=== PATIENT | male | born 1965 | race Caucasian/White ===

== ENCOUNTER 2018-01-21 16:37 | Emergency (ER) | payer OTHER ==
[~2018-01-21] VITALS: Ht 185.4 cm; Wt 98.9 kg
[2018-01-21 16:38] VITALS: BP 120/82
[2018-01-21 17:52] VITALS: BP 121/81
== END 2018-01-21 17:52 | disposition home or self-care (01) ==
LOC: MED 16:37
DX: K52.9 Noninfective gastroenteritis and colitis, unspecified (principal)
CPT/HCPCS: 99283

== ENCOUNTER 2018-02-08 23:23 | Inpatient (IN) | payer OTHER ==
[~2018-02-08] VITALS: Ht 185.4 cm; Wt 97.5 kg
[2018-02-08 23:30] VITALS: BP 157/100
--- NOTE | 2018-02-08 23:45 | NUR ---
PT TO ER BED 6
--- NOTE | 2018-02-08 23:48 | NUR ---
52/M CAME IN RT SIDED CHEST PAIN RADIATING TO NECK, NONPROVOKED, X 1300 TODAY. HEART SOUNDS NORMAL, SINUS TACH ON MONITOR. PT NONDIAPHORETIC, SKIN IS WARM AND DRY. DENIES N/V, SOB. REPORTS COUGH X 2 DAYS. DENIES OTHER PMH/RX/OTC
[2018-02-09 00:04] LABS: BASOPHILS % (AUTO) 0.3 % (0.0-2.0); EOSINOPHILS # (AUTO) 0.2 K/uL (0-0.4); EOSINOPHILS % (AUTO) 1.8 % (0.0-4.0); HEMATOCRIT 47.9 % (36-52); HEMOGLOBIN 15.8 g/dL (12.0-18.0); LYMPHOCYTES % (AUTO) 16.6 % (20.5-51.1); MEAN CORPUSCULAR HEMOGLOBIN 29 pg (27-31); MEAN CORPUSCULAR HGB CONC 33 g/dL (33-37); MEAN CORPUSCULAR VOLUME 88.6 fL (80-94); MONOCYTES % (AUTO) 8.1 % (1.7-9.3); NEUTROPHILS # (AUTO) 8.9 K/uL (1.8-7.7); NEUTROPHILS % (AUTO) 73.2 % (42.2-75.2); PLATELET COUNT (AUTO) 347 K/uL (140-450); RED BLOOD CELL COUNT(AUTO) 5.41 MIL/uL (4.20-6.10); RED CELL DISTRIBUTION WIDTH 13.5 % (11.6-13.7); WHITE BLOOD COUNT (AUTO) 12.1 K/uL (4.8-10.8)
[2018-02-09 00:08] LABS: APPEARANCE,URINE CLEAR (CLEAR); BILIRUBIN,URINE NEGATIVE (NEGATIVE); BLOOD, URINE NEGATIVE (NEGATIVE); COLOR,URINE YELLOW (YELLOW); LEUKOCYTE ESTERASE ,URINE NEGATIVE (NEGATIVE); NITRITE, URINE NEGATIVE (NEGATIVE); PH,URINE 7.5 (5.0-9.0); UGLUCOSE NEGATIVE (NEGATIVE)
[2018-02-09 00:21] LABS: ALBUMIN 3.9 g/dL (3.4-5.0); ANION GAP 14.3 (8-16); CREATININE 1.2 mg/dL (0.7-1.3); POTASSIUM 3.3 mmol/L (3.5-5.1); TOTAL BILIRUBIN 0.4 mg/dL (0.0-1.0)
[2018-02-09 00:23] LABS: RBC,URINE 0-5 (RARE) /HPF (0-5); WBC,URINE 0-5 (RARE) /HPF (0-5)
--- NOTE | 2018-02-09 01:58 | NUR ---
Patient appears to be resting comfortably in bed. Vital Signs within normal limits. Respirations even and unlabored.
[2018-02-09] MEDS ORDERED: NITROGLYCERIN 0.4 MG TAB SL ONE ×2 (02:10→02:20)
[2018-02-09] MEDS ORDERED: ASPIRIN 325 MG TAB PO ONE (02:10)
[2018-02-09] MEDS ORDERED: MORPHINE SULFATE 2 MG/ML SYR IVP PRN ×2 (02:20)
--- NOTE | 2018-02-09 02:55 | NUR ---
Patient will be admitted to [facility]. Admited to TELE. Will go to room 106B. Belongings list completed. BEDSIDE Report to DINORA BAILEY.
[2018-02-09 02:56] LABS: CHOL/HDL RATIO 5.4 (1-4.5)
[2018-02-09 03:10] VITALS: BP 123/77
--- NOTE | 2018-02-09 03:10 | NUR ---
RECEIVED REPORT FROM ER NURSE AT BEDSIDE FOR CONTINUITY OF CARE. PT AAOX4 IV NOTED LAC 18G SALINE LOCK. BED LOWERED CALL LIGHT WITHIN REACH WILL CONTINUE TO MONITOR.
--- NOTE | 2018-02-09 07:31 | NUR ---
GAVE REPORT TO DAYSHIFT NURSE FOR CONTINUITY OF CARE.
--- NOTE | 2018-02-09 07:35 | NUR ---
RECEIVED PT FROM DAIRY BAR MANAGER NURSEDINORA, PT IS AWAKE WITH AT THE BEDSIDE, PT IS ON O2 AT 2L VIA NC AND AN IV LINE AT LEFT AC G.18 IN SALINE LOCK, INTACT. NO SIGN OF DISTRESS NOTED ON THE PT AND WILL CONTINUE TO MONITOR.
--- NOTE | 2018-02-09 07:50 | NUR ---
PT IS AWAKE AND ON THE BEDSIDE, VITAL SIGNS TAKEN AND NO SIGN OF DISTRESS NOTED. RESPIRATIONS EVEN. CALL LIGHT WITHIN REACH AND WILL CONTINUE TO MONITOR.
[2018-02-09 08:00] VITALS: BP 118/78
--- NOTE | 2018-02-09 08:45 | NUR ---
PT IS AWAKE AND ON THE BEDSIDE. MEDICATIONS GIVEN AND PT TOLERATED IT. NO SIGN OF DISTRESS NOTED AND WILL CONTINUE TO MONITOR.
[2018-02-09] MEDS ORDERED: ENOXAPARIN 40 MG/0.4 ML SYR SUBQ SCH (09:00)
[2018-02-09] MEDS ORDERED: ATORVASTATIN 20 MG TAB PO SCH (09:00)
--- NOTE | 2018-02-09 10:25 | NUR ---
DR. BELLA VISITED AND SPOKE TO THE PT. NO SIGN OF DISTRESS NOTED ON THE PT AND HE RESPONDS APPROPRIATELY TO THE MD. WILL CONTINUE TO MONITOR.
[2018-02-09 12:00] VITALS: BP 109/77
--- NOTE | 2018-02-09 12:10 | NUR ---
PT IS AWAKE AND SEATED ON THE BED, VITAL SIGNS TAKEN AND IS STABLE. NO SIGN OF DISTRESS NOTED. WILL MONITOR.
--- NOTE | 2018-02-09 14:35 | NUR ---
ACKNOWLEDGED A DISCHARGE ORDER FROM DR. BELLA FOR THE PT ONCE MEDICALLY CLEARED BY [employer], DR. ALEJANDRE.
[2018-02-09 16:00] VITALS: BP 111/81
--- NOTE | 2018-02-09 16:15 | NUR ---
DR. LUIS ALEJANDRE SEE AND SPOKE TO THE PT. PT IS RESPONDONG APPROPRIATELY, NO SIGN OF DISTRESS NOTED.
--- NOTE | 2018-02-09 16:48 | NUR ---
ACKNOWLEDGED A DISCHARGE ORDER FROM DR. LUIS ALEJANDRE, WILL INFORM PT AND FACILITATE DISCHARGE PROCESS.
--- NOTE | 2018-02-09 18:00 | NUR ---
DISCHARGED PT VIA WHEELCHAIR WITH THE FAMILY, IV LINE AND ARM BAND REMOVED. DISCHARGE INSTRUCTIONS GIVEN. PT IS STABLE AT THIS TIME.
[2018-02-10] MEDS ORDERED: ASPIRIN 81 MG TAB.CHEW PO SCH (09:00)
--- NOTE | 2018-02-10 09:09 | NUR ---
RETRO REVIEW ER REPORT, H&P AND CONSULT FAXED TO [facility] [phone] PHONE TIM [phone] NO DISCHARGE SUMMARY.
== END 2018-02-09 18:00 | disposition home or self-care (01) | DRG 144 ==
LOC: MED 23:23 → MTU 02-09 02:20
PROVIDERS: ADMIT Hospitalist; ATTEND Hospitalist
DX: R07.81 Pleurodynia (principal); I10 Essential (primary) hypertension
CPT/HCPCS: 36415; 71045; 80053; 81001; 83036; 84484; 85025; 85379; 87081; 93005; 99285; J1650

== ENCOUNTER 2018-09-30 08:21 | Emergency (ER) | payer OTHER ==
[~2018-09-30] VITALS: Ht 185.4 cm; Wt 95.3 kg
[2018-09-30 08:30] VITALS: BP 105/79
--- NOTE | 2018-09-30 08:33 | NUR ---
PT AMBULATES TO BED 12
--- NOTE | 2018-09-30 08:40 | NUR ---
52 YO M BIB W/ C/O PRURITUS, GENERALIZED HIVES X LAST NIGHT. 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 NO RESPIRATORY DISTRESS NOTED, NO ACCESSORY MUSCLE USE NOTED. SPEAKING IN FULL, COMPLETE, AND APPROPRIATE SENTENCES. DENIES SOB. NO TONGUE/LIP/ FACIAL SWELLING NOTED. AAOX4, GCS 15. CMS INTACT. RR EVEN AND UNLABORED, LUNGS BL CLEAR. ABD SOFT, NON-TENDER. ER MD NOTIFIED OF PT STATUS. PT NEEDS MET. SAFETY PRCEAUTIONS IN PLACE. WILL CONTINUE TO MONITOR.
--- NOTE | 2018-09-30 09:50 | NUR ---
pt resting comfortably in [facility] at this time. rr even and unlabored, lungs bl clear. safety precautions in place. will continue to monitor.
[2018-09-30] MEDS ORDERED: FAMOTIDINE 20 MG TAB PO ONE (10:45)
[2018-09-30] MEDS ORDERED: LORATADINE 10 MG TAB PO ONE (10:45)
--- NOTE | 2018-09-30 11:01 | NUR ---
PATIENT MEDICATED. NO DISTRESS
[2018-09-30 11:28] VITALS: BP 111/67
--- NOTE | 2018-09-30 11:28 | NUR ---
Patient discharged with v/s stable. Written and verbal after care instructions given and explained. Patient alert, oriented and verbalized understanding of instructions. Ambulatory with steady gait. All questions addressed prior to discharge. ID band removed. Patient advised to follow up with PMD. Rx of Claritin and Pepcid given. Patient educated on indication of medication including possible reaction and side effects. Opportunity to ask questions provided and answered.
== END 2018-09-30 11:28 | disposition home or self-care (01) ==
LOC: MED 08:21
DX: L50.9 Urticaria, unspecified (principal)
CPT/HCPCS: 99283

== ENCOUNTER 2019-05-09 16:45 | Emergency (ER) | payer OTHER ==
[~2019-05-09] VITALS: Ht 185.4 cm; Wt 98.0 kg
[2019-05-09 16:49] VITALS: BP 137/88
--- NOTE | 2019-05-09 16:55 | NUR ---
PT AMB TO BED 7 WITH STEADY GAIT
--- NOTE | 2019-05-09 16:57 | NUR ---
DR. VELEZ AT BEDSIDE EVALUATING PATIENT AT THIS TIME.
--- NOTE | 2019-05-09 17:00 | NUR ---
C/O RIGHT SIDED HEADACHE AND LT POSTERIOR NECK PAIN X TODAY. DENIES INJURY. PAIN 01/09. IBUPROFEN AT 1600. PATIENT STATES HE OVERWORKS. DENIES VISUAL CHANGES, N/V. PT IS CHRONICALLY FATIGUED FROM WORK. PERRLA. 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 LT NECK TENDER TO PALPATION. PMH- DENIES RX-DENIES
[2019-05-09] MEDS ORDERED: KETOROLAC 30 MG/ML VIAL IM ONE (17:05)
[2019-05-09] MEDS ORDERED: DIAZEPAM 5 MG TAB PO ONE (17:05)
--- NOTE | 2019-05-09 17:06 | NUR ---
PT SENT TO CT VIA W/C WITH METAPHYSICIAN
--- NOTE | 2019-05-09 17:15 | NUR ---
PT BACK FROM CT.
[2019-05-09 17:58] VITALS: BP 133/72
--- NOTE | 2019-05-09 17:58 | NUR ---
Patient discharged with v/s stable. Written and verbal after care instructions given and explained. Patient alert, oriented and verbalized understanding of instructions. Ambulatory with steady gait. All questions addressed prior to discharge. ID band removed. Patient advised to follow up with PMD. Rx of valium, naproxen given. Patient educated on indication of medication including possible reaction and side effects. Opportunity to ask questions provided and answered.
== END 2019-05-09 17:57 | disposition home or self-care (01) ==
LOC: MED 16:45
DX: M54.81 Occipital neuralgia (principal); M54.2 Cervicalgia
CPT/HCPCS: 70450; 96372; 99284; J1885

== ENCOUNTER 2020-05-02 10:34 | Emergency (ER) | payer OTHER ==
[~2020-05-02] VITALS: Ht 185.4 cm; Wt 95.3 kg
[2020-05-02 10:40] VITALS: BP 142/88
--- NOTE | 2020-05-02 10:45 | NUR ---
AMBULATED TO BED 7
--- NOTE | 2020-05-02 11:01 | NUR ---
/o sudden onset of dizziness and lue paresthesia upon getting to working----f/u mild pain like some one jumping on chest---no accessery , skin dry, pink warm to touch
[2020-05-02] MEDS ORDERED: NACL 0.9% 1,000 ML IV ONE (11:10)
--- NOTE | 2020-05-02 11:15 | NUR ---
cxr at bedside
--- NOTE | 2020-05-02 11:15 | NUR ---
ua obtained and labs collected at iv start----
[2020-05-02 11:37] LABS: BASOPHILS # (AUTO) 0.1 K/uL (0.00-0.22); BASOPHILS % (AUTO) 0.7 % (0.0-2.0); EOSINOPHILS # (AUTO) 0.1 K/uL (0-0.4); EOSINOPHILS % (AUTO) 1.5 % (0.0-4.0); LYMPHOCYTES # (AUTO) 1.3 K/uL (2.0-11.5); MEAN CORPUSCULAR HEMOGLOBIN 30 pg (27-31); MEAN CORPUSCULAR HGB CONC 33 g/dL (33-37); MEAN CORPUSCULAR VOLUME 89.8 fL (80-94); MONOCYTES # (AUTO) 0.8 K/uL (0.8-1.0); MONOCYTES % (AUTO) 9.2 % (1.7-9.3); NEUTROPHILS % (AUTO) 72.6 % (42.2-75.2); PLATELET COUNT (AUTO) 335 K/uL (140-450); RED BLOOD CELL COUNT(AUTO) 5.67 MIL/uL (4.20-6.10); WHITE BLOOD COUNT (AUTO) 8.2 K/uL (4.8-10.8)
[2020-05-02 12:22] LABS: ANION GAP 15.1 (8-16); POTASSIUM 4.1 mmol/L (3.5-5.1)
[2020-05-02 12:49] VITALS: BP 104/66
--- NOTE | 2020-05-02 12:50 | NUR ---
Patient discharged with v/s stable. Written and verbal after care instructions given and explained. Patient verbalized understanding. Ambulatory with steady gait. All questions addressed prior to discharge. Advised to follow up with PMD.
--- NOTE | 2020-05-05 10:22 | NUR ---
LATE ENTRY -- CONFIRMED WITH RN THAT NS END TIME IS 1216 05/02/20.
== END 2020-05-02 12:50 | disposition home or self-care (01) ==
LOC: MED 10:34
DX: R55 Syncope and collapse (principal); E86.0 Dehydration; R19.7 Diarrhea, unspecified; F41.9 Anxiety disorder, unspecified
CPT/HCPCS: 36415; 71045; 80048; 84484; 85025; 93005; 96360; 99285; J7030; Q0092